=== PATIENT | male | born 1985 | race Caucasian/White ===

== ENCOUNTER 2020-11-06 06:44 | Outpatient (CLI) | payer MEDICAID ==
--- NOTE | 2020-11-06 13:00 | XRAY Report ---
PROCEDURE: Hip w/Pelvis 2-3V RT INDICATIONS: RIGHT HIP PAIN TECHNIQUE: AP pelvis with lateral view(s) of the right hip(s). COMPARISON: None. FINDINGS: Bones: No fractures or dislocations. Pelvic ring appears intact. No suspicious bony lesions. Soft tissues: The visualized bowel gas pattern is normal. No suspicious soft tissue calcifications. IMPRESSION: There is a small degree of hip joint osteoarthritis on the right as indicated by slight joint space narrowing, equivalent to that on the left. No source of asymmetric right-sided predominan t pain is found. Reviewed by: Víctor Mae MD on 11/06/2020 12:59 PM PST Approved by: Víctor Mae MD on 11/06/2020 12:59 PM PST Station ID: [id number]
== END 2020-11-06 06:45 | disposition home or self-care (01) ==
LOC: DI 06:44
PROVIDERS: ATTEND Family Medicine
DX: M25.551 Pain in right hip (principal); M16.11 Unilateral primary osteoarthritis, right hip; M54.16 Radiculopathy, lumbar region; M54.5 Low back pain; G89.29 Other chronic pain

== ENCOUNTER 2021-10-15 20:31 | Emergency (ER) | payer MEDICAID ==
[2021-10-15] MEDS ORDERED: HYDROmorphone 1 MG/ML CARPUJECT IVP STA (21:27)
[2021-10-15] MEDS ORDERED: HYDROmorphone 1 MG/ML CARPUJECT IM STA (21:51)
[2021-10-15 21:57] LABS: BILIRUBIN,URINE NEGATIVE (NEGATIVE); GLUCOSE, URINE (UA) NEGATIVE (NEGATIVE); KETONES,URINE (UA) >=80 mg/dL (NEGATIVE); LEUKOCYTE ESTERASE, URINE NEGATIVE (NEGATIVE); NITRITE,URINE NEGATIVE (NEGATIVE); OCCULT BLOOD,URINE NEGATIVE (NEGATIVE); PROTEIN,URINE NEGATIVE (NEGATIVE); UROBILINOGEN,URINE 0.2 (NORMAL) E.U./dL (NORMAL)
--- NOTE | 2021-10-15 22:00 | ED Physician Documentation ---
History of Present Illness - Stated complaint Stated Complaint: MALE /BACK & LEG PX - Chief complaint Chief Complaint: General - Additonal information Additional information: 36-year-old male presents emergency department for evaluation of 3 days of low back pain as well as pain in his right groin. States he has a longstanding history of back pain and he threw it out about 3 days ago. He has been taking ibuprofen without relief of symptoms. He has no saddle anesthesia but feels a constant dull ache in his right scrotum. No dysuria urgency or frequency. No hematuria. No fever. No saddle anesthesia. No loss of bowel or bladder function. Pain does not radiate to his legs. He also endorses generalized myalgias and chills. No fever. Is not vaccinated for COVID-19 and did have Covid infection about 1 month ago. Review of Systems Constitutional: reports: Fever, Chills, Myalgias Eyes: reports: Reviewed and negative Ears: reports: Reviewed and negative Nose: reports: Reviewed and negative Throat: reports: Reviewed and negative Cardiac: reports: Reviewed and negative Respiratory: reports: Reviewed and negative GI: denies: Abdominal Pain : reports: Testicular pain. denies: Dysuria, Frequency, Hesitancy Skin: denies: Rash PD PAST MEDICAL HISTORY - Past Medical History Past Medical History: No Cardiovascular: None Respiratory: None Neuro: None Endocrine/Autoimmune: None GI: None : None HEENT: None Psych: None Musculoskeletal: Chronic back pain Derm: None - Past Surgical History Past Surgical History: Yes General: Appendectomy - Present Medications Home Medications: Ambulatory Orders Medication Instructions Recorded Confirmed Ibuprofen [Motrin] 600 mg PO Q6H PRN #30 tab 10/15/21 methocarbamoL [Methocarbamol] 750 mg PO BID PRN #15 tablet 10/15/21 - Allergies Allergies/Adverse Reactions: Allergies Allergy/AdvReac Type Severity Reaction Status Date / Time No Known Drug Allergies Allergy Verified 10/15/21 20:42 - Social History Does the pt smoke?: No Smoking Status: Never smoker Does the pt drink ETOH?: No Does the pt have substance abuse?: No - Immunizations Immunizations are current?: Yes - POLST Patient has POLST: No PD ED PE EXPANDED - General General: Alert, No acute distress, Well developed/nourished - Cardiac Cardiac: Regular Rate, Radial strong equal, Pedal strong equal, Cap refill < 2 sec. No: Murmur Present - Respiratory Respiratory: Clear to ausultation javon. No: Distress, Labored - Abdomen Abdomen: Normal Bowel sounds. No: Tender to palpation - Male Male : Circumcised, Normal lie/cremastaric, Tenderness (Tenderness to palpation of the right scrotum and testicle without erythema or swelling. No inguinal lymphadenopathy.) - Back Back: Soft tissue tenderness (Bilateral lower paraspinous tenderness. No midline tenderness. Reduced forward flexion secondary to pain. Normal gait. Motor strength 5 of 5 bilateral lower extremities. No paresthesias.). No: Vertebral tenderness Results - Vitals Vitals: Vital Signs - 24 hr 10/15/21 10/15/21 10/15/21 20:34 20:58 22:08 Temperature 37.8 C 37.3 C Heart Rate 96 99 Respiratory 18 16 16 Rate Blood Pressure 125/76 136/73 H O2 Saturation 96 100 Oxygen O2 Source Room air - Labs Labs: Laboratory Tests 10/15/21 21:45 Urine Color YELLOW Urine Clarity CLEAR Urine pH 6.0 Ur Specific [place] 1.025 Urine Protein NEGATIVE Urine Glucose (UA) NEGATIVE Urine Ketones >=80 H Urine Occult Blood NEGATIVE Urine Nitrite NEGATIVE Urine Bilirubin NEGATIVE Urine Urobilinogen 0.2 (NORMAL) Ur Leukocyte Esterase NEGATIVE Ur Microscopic Review NOT INDICATED Urine Culture Comments NOT INDICATED - Rads (name of study) testicular US Radiology: Other (Per diagnostic radiologic technologist unremarkable ultrasound.) PD MEDICAL DECISION MAKING - ED course Complexity details: reviewed results, re-evaluated patient, considered differential, d/w patient ED course: 36-year-old male presents emergency department with 3 days of acute low back pain. No red flags on exam. He is also reporting right groin and testicular pain and on exam the scrotum and testicle were tender without erythema or redness. Urine showed no signs of infection. No penile discharge. Testicular ultrasound was unrevealing without findings of orchiditis Or hydrocele. Clearly no findings to suggest testicular torsion. Patient is prescribed ibuprofen and methocarbamol for low back pain. Advise close follow-up with primary care provider. Emergent return precautions discussed. Departure - Departure Disposition: 01 Home, Self Care Clinical Impression: Right testicular pain Low back pain Qualifiers: Chronicity: acute Back pain laterality: bilateral Sciatica presence: without sciatica Qualified Code(s): M54.50 - Low back pain, unspecified Condition: Stable Record reviewed to determine appropriate education?: Yes Prescriptions: methocarbamoL [Methocarbamol] 750 mg PO BID PRN #15 tablet PRN Reason: Spasms Ibuprofen [Motrin] 600 mg PO Q6H PRN #30 tab PRN Reason: Pain Comments: Maciel severino are seen in the emergency department today for low back pain. You are also reporting some pain in your right groin and scrotum. Your urine showed no signs of blood or infection. A testicular ultrasound did not show any findings of infection or swelling of the scrotum or testicle. It is not clear what the cause of the scrotal pain is. Sometimes pain in the back can be referred to the groin. I recommend that you fill the prescription for the ibuprofen and take with food 2-3 times a day. For severe pain I prescribed some methocarbamol which is a muscle relaxer. Use this cautiously it may make you drowsy. Please discuss this ED visit with your primary care doctor. I do recommend follow-up within the next 2 weeks. If at any point you develop fevers, you have numbness or tingling in your genital area or lose control of your bowel or bladder function then please return immediately to the ER for a second evaluation. 9 your 2 prescriptions have been sent to the [facility] in [place].
[2021-10-15 22:09] VITALS: BP 136/73
[2021-10-15 22:12] LABS: CLARITY,URINE CLEAR (CLEAR)
--- NOTE | 2021-10-15 23:10 | Ultrasound Report ---
PROCEDURE: Testicle INDICATIONS: rigth testicular pain TECHNIQUE: Real-time scanning was performed of the scrotum and testicles, with image documentation. Color and p ulse Doppler interrogation was performed of both testicles. COMPARISON: None. FINDINGS: Right: Testicle is normal in size at 5.7 x 2.5 x 3.4 cm, and homogenous in echotexture. Epididymis is normal in overall size and morphology. No hydrocele or varicoceles. Overlying scrotal skin is no rmal in thickness. Left: Testicle is normal in size at 5.3 x 2.4 x 3.4 cm, and homogeneous in echotexture. Epididymis is normal in overall size and morphology. No hydrocele or varicoceles. Overlying scrotal skin is n ormal in thickness. Doppler: Color and pulse Doppler demonstrate normal and symmetric arterial flow in both testicles. IMPRESSION: Unremarkable exam. No evidence of torsion at time of exam. Intermittent torsion cannot be excluded. Reviewed by: Dominga Salazar MD on 10/15/2021 11:09 PM [facility] Approved by: Dominga Salazar MD on 10/15/2021 11:09 PM PST Station ID: [id number]
== END 2021-10-15 23:21 | disposition home or self-care (01) ==
LOC: ED 20:31
DX: M54.50 Low back pain, unspecified (principal); N50.811 Right testicular pain
CPT/HCPCS: 76870; 81003; 96372; 99284; J1170; 81001; 87086

== ENCOUNTER 2023-08-27 08:00 | Outpatient (CLI) | payer MEDICAID ==
[2023-08-27 12:16] LABS: BILIRUBIN,URINE NEGATIVE (NEGATIVE); GLUCOSE, URINE (UA) NEGATIVE (NEGATIVE); KETONES,URINE (UA) NEGATIVE (NEGATIVE); LEUKOCYTE ESTERASE, URINE NEGATIVE (NEGATIVE); NITRITE,URINE NEGATIVE (NEGATIVE); OCCULT BLOOD,URINE NEGATIVE (NEGATIVE); PROTEIN,URINE NEGATIVE (NEGATIVE); UROBILINOGEN,URINE 0.2 (NORMAL) E.U./dL (NORMAL)
[2023-08-27 12:36] LABS: AMORPHOUS SEDIMENT,UR Marked /LPF; BACTERIA,URINE Moderate /HPF (None Seen); CLARITY,URINE CLEAR (CLEAR); RBC,URINE 0-5 /HPF (0-5); SQUAMOUS EPITHELIAL CELL,UR FEW Squamous (<= Few); WBC,URINE 0-3 /HPF (0-3)
== END 2023-08-27 23:59 | disposition home or self-care (01) ==
LOC: LAB.N 08:00
PROVIDERS: ATTEND Physician Assistant
DX: R35.0 Frequency of micturition (principal); R35.1 Nocturia
CPT/HCPCS: 81001; 87086

== ENCOUNTER 2023-12-23 08:10 | Day surgery (SDC) | payer MEDICAID ==
[2023-12-23] MEDS: LACTATED RINGERS 1,000 ML IV ONE ×2 (08:47→09:54)
[2023-12-23] MEDS ORDERED: PROPOFOL 500 MG/50 ML 500 MG/50 ML VIAL ONE (08:58)
[2023-12-23] MEDS ORDERED: LIDOCAINE-MPF 2% 5 ML VIAL ONE (08:58)
[2023-12-23] MEDS ORDERED: MIDAZOLAM 2 MG/2 ML VIAL ONE (09:07)
--- NOTE | 2023-12-23 09:12 | ANESTHESIA ---
Pre-Anesthesia VS, & Labs - Diagnosis screening, blood per rectum - Procedure colonoscopy, possible hemorroid banding Vital Signs: Temp Pulse Resp BP Pulse Ox O2 Flow Rate 36.3 C L 67 10 L 128/83 H 99 12/23/23 08:27 12/23/23 08:27 12/23/23 08:27 12/23/23 08:27 12/23/23 08:27 Height: 6 ft 1 in Weight (kg): 112 kg Body Mass Index: 32.5 BMI Classification: Obese - NPO >8 hours Home Medications and Allergies Allergies/Adverse Reactions: Allergies Allergy/AdvReac Type Severity Reaction Status Date / Time No Known Drug Allergies Allergy Verified 10/15/21 20:42 Anes History & Medical History - Anesthetic History Anesthesia Complications: reports: No previous complications Family history of Anesthesia Complications: Denies Family history of Malignant Hyperthermia: Denies - Medical History Cardiovascular: reports: None Pulmonary: reports: Sleep apnea Gastrointestinal: reports: None Urinary: reports: Frequency Neuro: reports: None Musculoskeletal: reports: Chronic back pain Endocrine/Autoimmune: reports: None Blood Disorders: reports: None Skin: reports: None Smoking Status: Never smoker Psychosocial: reports: Anxiety, Cannabis History of Cancer?: No - Surgical History General: reports: Appendectomy Orthopedic: reports: Other (shoulder dislocation reduced in ER at ) Exam General: Alert, Oriented x3, Cooperative Dental: WNL Mouth Openin Fingerbreadth Neck Mobility: Normal Mallampati classification: II Thyromental Distance: 4-6 cm Respiratory: Lungs clear Cardiovascular: Regular rate Plan Anesthesia Type: General Consent for Procedure(s) Verified and Reviewed: Yes Code Status: Attempt Resuscitation ASA classification: 2-Mild systemic disease Is this case an emergency?: No
[2023-12-23] MEDS ORDERED: GLYCOPYRROLATE 1 MG/5 ML VIAL ONE (09:26)
[2023-12-23] MEDS ORDERED: PROPOFOL 200 MG/20 ML VIAL IVP ONE (09:45)
[2023-12-23 10:37] VITALS: BP 117/74; O2SAT 99
== END 2023-12-23 08:11 | disposition home or self-care (01) ==
LOC: SDS 08:10
PROVIDERS: ATTEND Surgery
PROC: 0DBN8ZZ Excision of Sigmoid Colon, Via Natural or Artificial Opening Endoscopic (ICD-10-PCS; principal; 2023-12-23 09:30)
DX: K62.5 Hemorrhage of anus and rectum (principal); R10.9 Unspecified abdominal pain; D12.5 Benign neoplasm of sigmoid colon; K57.30 Diverticulosis of large intestine without perforation or abscess without bleeding; K64.9 Unspecified hemorrhoids; E66.9 Obesity, unspecified; Z68.32 Body mass index [BMI] 32.0-32.9, adult; G47.30 Sleep apnea, unspecified
CPT/HCPCS: 45380; J7120